=== PATIENT | male | born 1995 | race Caucasian/White ===

== ENCOUNTER 2018-03-24 14:05 | Emergency (ER) | payer OTHER ==
[~2018-03-24] VITALS: Ht 188 cm; Wt 113.6 kg
[2018-03-24 14:14] VITALS: BP 140/99; PULSE 93; TEMP 98.3
[2018-03-24] MEDS ORDERED: VYVANSE70 MG PO (14:16)
== END 2018-03-24 14:48 | disposition home or self-care (01) ==
LOC: COL.ER 14:05
DX: S61.213A Laceration without foreign body of left middle finger without damage to nail, initial encounter (principal); F90.9 Attention-deficit hyperactivity disorder, unspecified type; Z88.1 Allergy status to other antibiotic agents; W23.1XXA Caught, crushed, jammed, or pinched between stationary objects, initial encounter; Y92.219 Unspecified school as the place of occurrence of the external cause